=== PATIENT | female | born 1985 | race Caucasian/White ===

== ENCOUNTER → 2018-01-21 09:54 | Outpatient (CLI) | payer BC, SELFPAY ==
[2018-01-22 10:12] LABS: Hep A Ab, IgM Negative (Negative); Hepatitis B Core Antibody IgM Negative (Negative); Hepatitis B Surface Antigen Negative (Negative)
[2018-01-22 20:13] LABS: HIV Screen 4th Generation wRfx Non Reactive (Non Reactive); HSV 2 IgG, Type Spec <0.91 index (0.00-0.90)
[2018-01-22 20:14] LABS: Hepatitis C Antibody <0.1 s/co ratio (0.0-0.9); Rapid Plasma Reagin Ab Titer Non Reactive (NonRea<1:1)
== END ==
PROVIDERS: PCP Nurse Practitioner Obstetrics & Gynecology; Visit Provider Nurse Practitioner Obstetrics & Gynecology
DX: Z01.419 Encounter for gynecological examination (general) (routine) without abnormal findings (principal); Z72.51 High risk heterosexual behavior; Z72.53 High risk bisexual behavior
CPT/HCPCS: 36415; 80074; 86592; 86703; 86790; G0432

== ENCOUNTER → 2020-04-10 15:27 | Outpatient (CLI) | payer BC, SELFPAY ==
[2020-04-10 16:12] LABS: Basophils # 0.1 K/mm3 (0-0.2); Basophils % 0.9 % (0.1-2.0); Eosinophils # 0.2 K/mm3 (0.0-0.4); Eosinophils % 2.1 % (0.1-12.0); Hematocrit 39.4 % (37.0-47.0); Hemoglobin 13.8 g/dL (12.2-16.2); Lymphocytes # 2.7 K/mm3 (0.7-4.5); Lymphocytes % 37.9 % (10-50); Mean Corpuscular Hemoglobin 31.4 pg (27.0-31.2); Mean Corpuscular Volume 89.6 fl (81-99); Mean Platelet Volume 7.3 fl (7.4-10.4); Monocytes # 0.4 K/mm3 (0.1-1.0); Monocytes % 5.8 % (1.7-9.3); Neutrophils # 3.9 K/mm3 (1.8-7.8); Neutrophils % 53.3 % (37.0-80.0); Platelet Count 284 K/mm3 (142-424); Red Blood Count 4.39 M/mm3 (4.20-5.40); Red Cell Distribution Width 12.7 % (11.5-17.5); White Blood Count 7.2 K/mm3 (4.8-10.8)
[2020-04-10 18:05] LABS: Blood Urea Nitrogen 15 mg/dl (7-17); Calcium 9.3 mg/dl (8.4-10.2); Carbon Dioxide 29 mmol/L (22.0-30.0); Chloride 104 mmol/L (98-107); Estimated Glomerular Filt Rate 97 ml/min (>60); GFR (African American) 117 ML/MIN (>60); Glucose 81 mg/dl (74-100); Sodium 141 mmol/L (136-145)
[2020-04-10 18:16] LABS: Coronavirus 19 IgG Antibody Negative (Negative); Coronavirus 19 IgM Antibody Negative (Negative)
[2020-04-10 18:17] LABS: HCG Qualitative, Serum Negative (Negative)
== END ==
PROVIDERS: Visit Provider Nurse Practitioner Obstetrics & Gynecology
DX: Z30.09 Encounter for other general counseling and advice on contraception (principal); Z01.818 Encounter for other preprocedural examination
CPT/HCPCS: 36415; 80048; 84703; 85025; 86328

== ENCOUNTER 2020-04-12 06:01 | Day surgery (SDC) | payer BC, SELFPAY ==
[2020-04-10 10:08] VITALS: BMI 24.3
[2020-04-12] VITALS (10 sets, daily range): BP systolic 104–129; BP diastolic 64–80; PULSE 61–78; RESP 13–18; TEMP 36.2–36.6; O2SAT 95–100
--- NOTE | 2020-04-12 07:02 | P.PN_ITS ---
[facility] Anesthesia Checklist - Patient Identification Patient Identification: Arm Band, Verbal (Name & ) - Structural Data Admitted From: Home Planned Operative Procedure/s: Laparoscopic bilateral salpingectomy Consent for Planned Operative Procedure(s) Verified: Yes Verified Documents: Surgical Consent, History and Physical - NPO Status Verified Time NPO: 00:00 - Chart Verification Results Verified: CBC, BMP, HCG - Additional verifications Patient : No Anesthesia Reactions: No Hx Blood Transfusions: No Blood Transfusion Reaction: No - Airway Assessment C-Spine Mobility Assessed: Yes TMJ Mobility Assessed: Yes Dentition: Good Dentition - Neurological Assessment Level of Consciousness: Awake, Alert, Appropriate, Follows Commands Hx Seizures: No Numbness or tingling in extremities: No - Anesthesia Plan Anesthesia Risk discussed: Yes Anesthesia Plan: Verified ASA Class: II Anesthesia Type: General [facility] History I have reviewed the patient's past medical history: Yes Medical History: Reports:: Depression Denies:: Anxiety, Asthma, Cancer, Diabetes Mellitus Type 1, Diabetes Mellitus Type 2, Hypertension, Internal Pacemaker, MRSA, Seizures *Have you ever received a pneumonia vaccine?: No *Have you received a flu vaccine this season?: Yes Other Medical History: Denies: Blood Transfusion Reaction Anesthesia experience/problems:: No prior complications Other Surgeries: Yes: Cholecystectomy. No: Pacemaker Amputation: No Fractures: No - *Social History Last grade of school completed: High school graduate Smoking Status: Never smoker Alcohol Intake: never Substance Use Type: denies use *Occupational Status:: employed Housing: house Household Members: children *Travel in the last 8 weeks: None - Psychiatric History Pschychiatric History:: Reports:: Depression Denies:: Anxiety Family Hx:: Cancer, Diabetes, Asthma
--- NOTE | 2020-04-12 08:07 | P.OP_ITS ---
Date of procedure: 04/12/20 Pre-op Diagnosis:: Desire for sterilization Post-op Diagnosis:: Desire for sterilization Procedure performed:: Laparoscopic bilateral salpingectomy Surgeon:: Tunde Laguerre MD [employer] LAUNDRY WORKER:: Ajay Rahman Anesthesia: CARMELAA Estimated blood loss (mL): 25 Clinical Note:: She is a 34-year-old lady who expressed desire for sterilization. The risks and benefits as well as the irreversibility of bilateral salpingectomy were discussed with the patient prior to surgery. Operative findings:: She had a normal-appearing anteverted uterus. The tubes and ovaries appeared normal. The appendix was visualized and appeared normal. The upper abdomen was visualized and appeared normal. The deep pelvis was normal. Operative note:: She was taken to the operating room where general anesthesia was found be adequate. She was prepped and draped in normal sterile fashion in the semilithotomy position. A weighted speculum was placed in the vagina and the anterior lip of the cervix was grasped with a tenaculum. I then inserted a Radha uterine manipulator into the cervical os. The balloon was then insufflated. I changed gloves and injected 10 cc of 0.5% ropivacaine around her umbilicus and made a small incision within the umbilicus. I inserted a Veress needle into the abdominal cavity. The peritoneal cavity was then insufflated with carbon dioxide gas to a pressure of 20 mmHg. I then inserted a 5 millimeter trocar under direct vision. I injected through and through the pubic hairline, made a small incision here and inserted an 8 mm trocar under direct vision. I identified the inferior epigastric artery on the left side, went lateral to these and injected through and through. I then placed a 5 mm trocar here under direct vision. The pelvis and upper abdomen were then inspected and the findings were as previously dictated. I grasped the right tube at the cornua and using harmonic scalpel on coagulation mode I cut through the tube. I then grasped the distal tube and using harmonic scalpel cut along the mesosalpinx. The tube was removed through 8 mm trocar sit e. This was similarly performed on the patient's left side. I then injected 30 cc of 0.5% ropivacaine into the pelvis. After assuring hemostasis the gas was let out of the abdomen and hemostasis was once again assured. The abdomen was then reinsufflated. The secondary trochars were removed under direct vision. The gas was let out her abdomen. The primary trocar was then removed. The 8 mm trocar site was closed deeply with 2-0 Vicryl suture followed by subcuticular 4-0 Monocryl suture. The 5 mm trocar sites were closed with subcuticular 4-0 Monocryl. Sterile dressings were applied. The patient tolerated the procedure well and was taken to the recovery room in excellent condition. All sponge instrument and needle counts were correct. The estimated blood loss was less than 25 cc. Condition: stable Disposition: PACU Specimens:: Bilateral fallopian tubes Complications:: None
--- NOTE | 2020-04-12 08:15 | P.PN_ITS ---
[facility] Anesthesia Record Part I Intake, IV Amount: 900 Estimated blood loss (mL): 25 Urine output (mL): 900 Blood Products used (#): none Blood Pressure: 122/80 SaO2: 97 Pulse Rate: 70 Respiratory Rate: 13 Temperature: 97.1 F Patient is:: Awake, Drowsy, Stable Stable to PACU at:: 08:11
--- NOTE | 2020-04-12 13:36 | P.PN_ITS ---
[facility] Anesthesia Record Part II Discharge Time: 08:45 Destination: Surgical Day Care (OP Surgery) PACU nurse assessment reviewed?: Yes Patient Condition:: Good Anesthesia Complications:: None Swallowing reflex intact?: Yes Cyanosis?: No Blood Pressure: 108/72 Pulse Rate: 67 Temperature: 97.8 F Mental Status: Alert & Oriented Pain level:: 0 Nausea and/or vomitting:: None Intake, IV Amount: 0
== END 2020-04-12 09:12 | disposition home or self-care (01) ==
LOC: OR 06:04
PROVIDERS: PCP Nurse Practitioner Obstetrics & Gynecology; Visit Provider Nurse Practitioner Obstetrics & Gynecology
PROC: (CPT 58661; principal; 2020-04-12 07:30)
DX: Z30.2 Encounter for sterilization (principal); F32.9 Major depressive disorder, single episode, unspecified; Z90.49 Acquired absence of other specified parts of digestive tract; Z80.9 Family history of malignant neoplasm, unspecified; Z83.3 Family history of diabetes mellitus; Z82.5 Family history of asthma and other chronic lower respiratory diseases
CPT/HCPCS: 58661; 96374; J2405

== ENCOUNTER → 2021-01-06 14:53 | Outpatient (CLI) | payer BC, SELFPAY ==
--- NOTE | 2021-01-06 14:57 | US_ITS ---
PROCEDURE: US TRANSVAGINAL CLINICAL INDICATION: heavy periods COMPARISON: US TVP US TRANSVAGINAL PREG from 02/15/2017 FINDINGS: UTERUS: 9cm x 6cmx 4cm with a combined endometrial thickness of 7.6mm LEFT OVARY: [id number] with a volume of 4.1ml. RIGHT OVARY: [id number] with a volume of 18.9ml. There is a small amount of endometrial fluid. 2.7 cm right ovarian cyst is noted which appears to be a simple cyst. No cul-de-sac fluid. IMPRESSION: 1. Small amount of fluid within the endometrium. No endometrial thickening. 2. 2.7 cm simple appearing right ovarian cyst Dictated by: Dustin German MD 01/07/2021 09:55 Dustin German MD in OV 01/07/2021 09:55
== END ==
PROVIDERS: PCP Nurse Practitioner Obstetrics & Gynecology; Visit Provider Nurse Practitioner Obstetrics & Gynecology
DX: N92.0 Excessive and frequent menstruation with regular cycle (principal)
CPT/HCPCS: 76830

== ENCOUNTER → 2021-01-22 15:31 | Outpatient (CLI) | payer BC, SELFPAY ==
[2021-01-22 16:06] LABS: Basophils # 0.1 K/mm3 (0-0.2); Basophils % 0.7 % (0.1-2.0); Eosinophils # 0.2 K/mm3 (0.0-0.4); Eosinophils % 2.1 % (0.1-12.0); Hematocrit 41.6 % (37.0-47.0); Hemoglobin 13.8 g/dL (12.2-16.2); Lymphocytes # 2.6 K/mm3 (0.7-4.5); Lymphocytes % 35.7 % (10-50); Mean Corpuscular HGB Conc 33.2 g/dL (31.8-35.4); Mean Corpuscular Hemoglobin 30.3 pg (27.0-31.2); Mean Corpuscular Volume 91.1 fl (81-99); Mean Platelet Volume 6.6 fl (7.4-10.4); Monocytes # 0.5 K/mm3 (0.1-1.0); Monocytes % 6.9 % (1.7-9.3); Neutrophils % 54.6 % (37.0-80.0); Platelet Count 345 K/mm3 (142-424); Red Blood Count 4.56 M/mm3 (4.20-5.40); Red Cell Distribution Width 12.8 % (11.5-17.5); White Blood Count 7.4 K/mm3 (4.8-10.8)
[2021-01-22 16:25] LABS: HCG Qualitative, Serum Negative (Negative)
[2021-01-22 16:28] LABS: Blood Urea Nitrogen 11 mg/dl (7-17); Calcium 9.5 mg/dl (8.4-10.2); Carbon Dioxide 30 mmol/L (22.0-30.0); Chloride 102 mmol/L (98-107); Estimated Glomerular Filt Rate 115 ml/min (>60); GFR (African American) 139 ML/MIN (>60); Glucose 98 mg/dl (74-100); Sodium 141 mmol/L (136-145)
[2021-01-22 16:54] LABS: Coronavirus 19 IgG Antibody Negative (Negative); Coronavirus 19 IgM Antibody Negative (Negative)
== END ==
PROVIDERS: Visit Provider Nurse Practitioner Obstetrics & Gynecology
DX: Z01.818 Encounter for other preprocedural examination (principal); Z20.822 Contact with and (suspected) exposure to COVID-19; N93.9 Abnormal uterine and vaginal bleeding, unspecified; N92.1 Excessive and frequent menstruation with irregular cycle
CPT/HCPCS: 36415; 80048; 84703; 85025; 86328

== ENCOUNTER 2021-01-24 06:05 | Day surgery (SDC) | payer BC, SELFPAY ==
[2021-01-22 09:31] VITALS: BMI 24.6
[2021-01-24] VITALS (10 sets, daily range): BP systolic 106–125; BP diastolic 69–81; PULSE 80–93; RESP 12–18; TEMP 36.4–37.4; O2SAT 96–100
--- NOTE | 2021-01-24 08:05 | HMH.OPNOTE ---
Date of procedure: 01/24/21 Pre-op Diagnosis:: Menorrhagia Post-op Diagnosis:: Menorrhagia Procedure performed:: Hysteroscopy, dilation and curettage, NovaSure ablation Surgeon:: Tunde Laguerre MD HIGH SCHOOL FOOTBALL COACH:: Other (Jefe Spencer) Anesthesia: LMA Estimated blood loss (mL): 100 Clinical Note:: She is a 35-year-old lady who complains of extremely heavy periods. She has tried the control pill as well as IUD in the past. Despite this she continued to have heavy periods. After having discussed the risk and benefits she elected to have a NovaSure ablation. She has had a prior tubal ligation. Operative findings:: She had an anteverted bulky uterus that sounded to 9 cm. The endometrium appeared somewhat lush. It appeared that there may have been some endometritis since the endometrium was erythematous near the fundus. Operative note:: She was taken to the operating room where LMA anesthesia was found be adequate. She was prepped and draped in the normal sterile fashion in the lithotomy position. A weighted speculum was placed in the vagina and the anterior lip of the cervix was grasped with a tenaculum. The cervix was then dilated to approximately 6 mm. I then inserted a hysteroscope into the uterine cavity and the findings were as previously dictated. I then performed a gentle curettage with a medium curette. I then sounded the uterus and determine the length of the uterus. The length of the uterus was 9 cm. The length of the endometrial cavity was 6 cm and the width was 4.4 cm. This was placed into the NovaSure device. I then inserted the NovaSure device and determine the width of the endometrial cavity. I then ran the device through its program. I further inspected the endometrial cavity and was found to be completely charred. I then injected 30 cc of 0.5% ropivacaine at the 3:00, 5:00, 7:00, and 9:00 positions of the cervix. She tolerated procedure well and was taken to the recovery room in excellent condition. All sponge and instrument counts were correct. The estimated blood loss was less than 100 cc. Condition: stable Disposition: PACU Specimens:: Endometrial curettings Complications:: None
--- NOTE | 2021-01-24 12:01 | P.PN_ITS ---
[facility] Anesthesia Checklist - Patient Identification Patient Identification: Arm Band - Structural Data Admitted From: Home Planned Operative Procedure/s: Hysterscopy D & C/ Novasure ablation Consent for Planned Operative Procedure(s) Verified: Yes Verified Documents: Surgical Consent, History and Physical - NPO Status Verified Time NPO: 00:00 - Additional verifications Anesthesia Reactions: No Hx Blood Transfusions: No Blood Transfusion Reaction: No - Airway Assessment C-Spine Mobility Assessed: Yes TMJ Mobility Assessed: Yes Dentition: Good Dentition - Neurological Assessment Level of Consciousness: Awake, Alert - Anesthesia Plan Anesthesia Risk discussed: Yes Anesthesia Plan: Verified Anesthesia Type: General [facility] History Medical History: Reports:: Depression, Gall Bladder Disease Denies:: Anxiety, Asthma, Cancer, Diabetes Mellitus Type 1, Diabetes Mellitus Type 2, Hypertension, Internal Pacemaker, MRSA, Seizures *Have you ever received a pneumonia vaccine?: No *Have you received a flu vaccine this season?: No Other Medical History: Denies: Blood Transfusion Reaction Anesthesia experience/problems:: None Other Surgeries: Yes: Cholecystectomy. No: Pacemaker Amputation: No Fractures: No - *Social History Smoking Status: Never smoker Alcohol Intake: never Substance Use Type: denies use *Occupational Status:: employed Housing: house Household Members: children *Travel in the last 8 weeks: None - Psychiatric History Pschychiatric History:: Reports:: Depression Denies:: Anxiety Family Hx:: Cancer, Diabetes, Asthma
--- NOTE | 2021-01-24 12:04 | P.PN_ITS ---
[facility] Anesthesia Record Part I Intake, IV Amount: 800 Estimated blood loss (mL): 25 Urine output (mL): 0 Blood Pressure: 120/81 SaO2: 96 Pulse Rate: 89 Respiratory Rate: 12 Temperature: 97.9 F Patient is:: Awake, Drowsy Stable to PACU at:: 08:10
--- NOTE | 2021-01-27 08:19 | P.PN_ITS ---
[facility] Anesthesia Record Part II Discharge Time: 08:30 Destination: Surgical Day Care (OP Surgery) PACU nurse assessment reviewed?: Yes Patient Condition:: Good Anesthesia Complications:: None Swallowing reflex intact?: Yes Cyanosis?: No Blood Pressure: 121/74 Pulse Rate: 82 Temperature: 99.4 F Mental Status: Alert & Oriented Pain level:: 0 Nausea and/or vomitting:: None Intake, IV Amount: 0
[2021-01-27 08:20] VITALS: BP 121/74; PULSE 82; TEMP 37.4
== END 2021-01-24 09:44 | disposition home or self-care (01) ==
PROVIDERS: PCP Nurse Practitioner Obstetrics & Gynecology; Visit Provider Nurse Practitioner Obstetrics & Gynecology
PROC: 0U5B8ZZ Destruction of Endometrium, Via Natural or Artificial Opening Endoscopic (ICD-10-PCS; CPT 58563; principal; 2021-01-24 07:30)
DX: N92.1 Excessive and frequent menstruation with irregular cycle; Z80.9 Family history of malignant neoplasm, unspecified; Z83.3 Family history of diabetes mellitus; Z82.5 Family history of asthma and other chronic lower respiratory diseases; F32.9 Major depressive disorder, single episode, unspecified; K82.9 Disease of gallbladder, unspecified
CPT/HCPCS: 58563; 96374; J2405

== ENCOUNTER 2021-04-16 16:46 | Emergency (ER) | payer BC, SELFPAY ==
[2021-04-16 16:58] VITALS: BP 104/85; PULSE 117; RESP 18; TEMP 37.3; O2SAT 99; BMI 24.7
[2021-04-16 17:07] VITALS: BP 112/78; PULSE 114; RESP 20; TEMP 37.8; O2SAT 95; BMI 24.9
--- NOTE | 2021-04-16 17:10 | HMH.EDUTC ---
[facility] [place] Impression: Viral syndrome Pharyngitis Qualifiers: Pharyngitis/tonsillitis etiology: unspecified etiology Qualified Code(s): J02.9 - Acute pharyngitis, unspecified Disposition: Home, Self-Care Condition on Discharge: Good Instructions: DI for Pharyngitis/Tonsillopharyngitis -- Adult, DI for Viral Syndrome, Preventing the Spread of Coronavirus Discharge Instructions Additional Instructions: Drink plenty of fluids. Take tylenol or ibuprofen for pain or fever. Take the medications as directed. Follow up with your regular doctor. GO TO THE ER FOR ANY WORSENING SYMPTOMS Prescriptions: predniSONE [Deltasone 10mg tablet] 10 mg PO BID 3 Days #6 tab Transmission Status: Received by [facility] Benzonatate [Tessalon Perle 100mg Cap] 100 mg PO TIDP PRN #30 cap PRN Reason: Cough Transmission Status: Received by [facility] Azithromycin [Z-Bandar 250mg Tab*] 250 mg PO UD DOSE PK #6 tab Transmission Status: [facility] Referrals: Leny Zavala PA [Primary Care Provider] - Forms: Work/School Release Time of Disposition: 17:22 Medical Decision Making - Medical Records Medical records reviewed: No: I reviewed the patient's medical records. - Diego Inquiry Pt receiving controlled substance: No Vital Signs: 04/16/21 16:58 04/16/21 17:07 04/16/21 17:20 Temperature 99.1 F 100.1 F H 100 F H Temperature Source Oral Oral Pulse Rate 109 H Pulse Rate [Left Radial] 117 H 114 H Respiratory Rate 18 20 18 Blood Pressure 110/73 Blood Pressure [Left Arm] 104/85 L 112/78 Blood Pressure Mean [Left Arm] 91 89 Blood Pressure Source [Left Arm] Automatic Cuff Blood Pressure Position [Left Arm] Sitting 02 Sat by Pulse Oximetry 99 95 Oxygen Delivery Method Room Air - Lab Data Lab results reviewed: Yes: I reviewed the patient's lab results. Lab Results 04/16/21 17:13: Strep Scn Rapid Clinic Negative Orders (Tests/Meds): ORDERS Category Date Time Status Strep Screen Confirmation Stat Micro 04/16/21 17:13 [place] [facility] [place] - General Stated complaint: NOONAN,Nausa,weakness,fever Time Seen by Provider: 04/16/21 17:10 Mode of Arrival: Ambulatory Source of Information: Patient Limitations: No Limitations Description of Symptoms (Recalled from Triage Doc. by RN): Pt reports began having headache on Wednesday of this week, reports on wednesday continued with headache. Reports no energy, weak, lethargic feeling, states has had fevers, runny nose. - History of Present Illness Provider Complaint: She states that for the past 2 days she has had fever up to 101, cough, sinus congestion, body aches and n/d. She denies any vomiting. She has not been vaccinated against covid-19. - Related Data Previous Rx's Medication Instructions Recorded Azithromycin [Z-Bandar 250mg Tab*] 250 mg PO UD DOSE PK #6 tab 04/16/21 Benzonatate [Tessalon Perle 100mg 100 mg PO TIDP PRN #30 cap 04/16/21 Cap] predniSONE [Deltasone 10mg tablet] 10 mg PO BID 3 Days #6 tab 04/16/21 Allergies Allergy/AdvReac Type Severity Reaction Status Date / Time No Known Allergies Allergy Verified 02/11/21 15:31 [facility] History - Hepatitis A Screen Attestation statement:: This patient has been screened for Hepatitis A risk factors. I have reviewed the patient's past medical history: Yes Medical History: Reports:: Depression, Gall Bladder Disease Denies:: Anxiety, Asthma, Cancer, Diabetes Mellitus Type 1, Diabetes Mellitus Type 2, Hypertension, Internal Pacemaker, MRSA, Seizures Other Medical History: Denies: Blood Transfusion Reaction Other Surgeries: Yes: Cholecystectomy, Dilation and Curettage. No: Pacemaker Amputation: No Fractures: No Comment: D&C hysteroscopy Novasure Ablation 12/2020 - Social History Smoking Status: Never smoker Alcohol Intake: never Substance Use Type: denies use Occupational Status: employed Housing: house Household Member
[2021-04-16 17:20] VITALS: BP 110/73; PULSE 109; RESP 18; TEMP 37.7
[2021-04-16 17:20] LABS: UTC Strep Screen (Rapid) Negative (Negative)
--- NOTE | 2021-04-17 10:01 | PC.NURSE ---
relayed positive covid results.
== END 2021-04-16 17:30 | disposition home or self-care (01) ==
PROVIDERS: Emergency Provider Nurse Practitioner Family; PCP Physician Assistant
DX: U07.1 COVID-19 (principal); B34.9 Viral infection, unspecified; F33.1 Major depressive disorder, recurrent, moderate
CPT/HCPCS: 87880; 99203; G0463; U0003

== ENCOUNTER 2021-04-22 13:00 | Emergency (ER) | payer BC, SELFPAY ==
[2021-04-22 13:00] VITALS: BP 118/73; PULSE 89; RESP 20; TEMP 36.9; O2SAT 96; BMI 23.4
--- NOTE | 2021-04-22 13:51 | HMH.EDUTC ---
[facility] [place] Clinical Impression: Serous otitis media Qualifiers: Chronicity: acute Laterality: bilateral Recurrence: non-recurrent Qualified Code(s): H65.03 - Acute serous otitis media, bilateral Disposition: Home, Self-Care Condition on Discharge: Good Instructions: Middle Ear Infection, Preventing the Spread of Coronavirus Discharge Instructions Additional Instructions: Drink plenty of fluids. Take tylenol for pain or fever. Return if youDrink plenty of fluids. Take tylenol for pain or fever. Return if you begin to have difficulty breathing. Prescriptions: methylPREDNISolone [Medrol] 4 mg PO DIRECTED 6 Days #21 tab.ds.pk Transmission Status: Received by [facility] Referrals: Leny Zavala PA [Primary Care Provider] - Time of Disposition: 13:53 Medical Decision Making - Medical Records Medical records reviewed: No: I reviewed the patient's medical records. - Diego Inquiry Pt receiving controlled substance: No Vital Signs: 04/22/21 13:00 04/22/21 14:15 Temperature 98.5 F 98.5 F Temperature Source Oral Pulse Rate 89 Pulse Rate [Left Radial] 89 Respiratory Rate 20 20 Blood Pressure 118/73 Blood Pressure [Right Arm] 118/73 Blood Pressure Mean [Right Arm] 88 Blood Pressure Source [Right Arm] Automatic Cuff Blood Pressure Position [Right Arm] Sitting 02 Sat by Pulse Oximetry 96 Oxygen Delivery Method Room Air [facility] [place] - General Stated complaint: both ear ache Time Seen by Provider: 04/22/21 13:51 Mode of Arrival: Ambulatory Source of Information: Patient Limitations: No Limitations Description of Symptoms (Recalled from Triage Doc. by RN): c/o ears hurting HEENT Symptoms (Recalled from RN notes): Yes Resp Symptoms (Recalled from RN notes): No Skin Symptoms (Recalled from RN notes): No MS Symptoms (Recalled from RN notes): No Functional Status (Recalled from RN notes): wnl - History of Present Illness Provider Complaint: She is having bilateral ear pain. She was diagnosed with covid last week. She states that she is doing much better, but she has began to have ear pain and pressure. - Related Data Previous Rx's Medication Instructions Recorded Azithromycin [Z-Bandar 250mg Tab*] 250 mg PO UD DOSE PK #6 tab 04/16/21 Benzonatate [Tessalon Perle 100mg 100 mg PO TIDP PRN #30 cap 04/16/21 Cap] predniSONE [Deltasone 10mg tablet] 10 mg PO BID 3 Days #6 tab 04/16/21 methylPREDNISolone [Medrol] 4 mg PO DIRECTED 6 Days #21 04/22/21 tab.ds.pk Allergies Allergy/AdvReac Type Severity Reaction Status Date / Time No Known Allergies Allergy Verified 02/11/21 15:31 - Worker's Comp Is this a Worker's Comp case?: No H History - Hepatitis A Screen Drug use history?: No High risk sexual behaviors?: No History of sexually transmitted infection?: No Currently employed?: No Childcare worker?: No Do you have indoor plumbing?: Yes Do you have electricity?: Yes Attestation statement:: This patient has been screened for Hepatitis A risk factors. I have reviewed the patient's past medical history: Yes Medical History: Reports:: Depression, Gall Bladder Disease Denies:: Anxiety, Asthma, Cancer, Diabetes Mellitus Type 1, Diabetes Mellitus Type 2, Hypertension, Internal Pacemaker, MRSA, Seizures Other Medical History: Denies: Blood Transfusion Reaction Other Surgeries: Yes: Cholecystectomy, Dilation and Curettage. No: Pacemaker Amputation: No Fractures: No Comment: D&C hysteroscopy Novasure Ablation 12/2020 - Social History Smoking Status: Never smoker Alcohol Intake: never Substance Use Type: denies use Occupational Status: employed Housing: house Household Members: children - Psychiatric History Pschychiatric History:: Reports:: Depression Denies:: Anxiety Family Hx:: Cancer, Diabetes, Asthma ROS Obtained: Yes All systems reviewed & no additional complaints - Constitutional Constitutional: Reports system reviewed and no additional
[2021-04-22 14:15] VITALS: BP 118/73; PULSE 89; RESP 20; TEMP 36.9; O2SAT 96
== END 2021-04-22 14:24 | disposition home or self-care (01) ==
PROVIDERS: Emergency Provider Nurse Practitioner Family; PCP Physician Assistant
DX: H65.03 Acute serous otitis media, bilateral (principal); U07.1 COVID-19; F33.1 Major depressive disorder, recurrent, moderate
CPT/HCPCS: 99202; G0463

== ENCOUNTER → 2021-07-22 16:32 | Outpatient (CLI) | payer BC, SELFPAY ==
[2021-07-24 22:40] LABS: Neisseria gonorrhoeae, NAA Negative (Negative)
== END ==
PROVIDERS: Visit Provider Nurse Practitioner Obstetrics & Gynecology
DX: Z72.51 High risk heterosexual behavior (principal)
CPT/HCPCS: 87491; 87591

== ENCOUNTER → 2021-12-03 08:28 | Outpatient (CLI) | payer BC, SELFPAY ==
[2021-12-03 08:56] LABS: Basophils # 0.1 K/mm3 (0-0.2); Basophils % 1.3 % (0.1-2.0); Eosinophils # 0.1 K/mm3 (0.0-0.4); Eosinophils % 2.1 % (0.1-12.0); Hematocrit 45.2 % (37.0-47.0); Lymphocytes # 2.2 K/mm3 (0.7-4.5); Lymphocytes % 35.7 % (10-50); Mean Corpuscular HGB Conc 33.1 g/dL (31.8-35.4); Mean Corpuscular Hemoglobin 31.3 pg (27.0-31.2); Mean Corpuscular Volume 94.6 fl (81-99); Mean Platelet Volume 7.5 fl (7.4-10.4); Monocytes # 0.5 K/mm3 (0.1-1.0); Monocytes % 8.4 % (1.7-9.3); Neutrophils # 3.2 K/mm3 (1.8-7.8); Neutrophils % 52.5 % (37.0-80.0); Platelet Count 336 K/mm3 (142-424); Red Blood Count 4.77 M/mm3 (4.20-5.40); Red Cell Distribution Width 12.8 % (11.5-17.5); White Blood Count 6.1 K/mm3 (4.8-10.8)
[2021-12-03 10:23] LABS: Chloride 100 mmol/L (98-107); Sodium 136 mmol/L (136-145)
[2021-12-03 10:24] LABS: Potassium 4.3 mmoL/L (3.5-5.1)
[2021-12-03 10:27] LABS: Anion Gap 13.3 mEq/L (5-15); Blood Urea Nitrogen 11 mg/dl (7-17); Calcium 8.7 mg/dl (8.4-10.2); Carbon Dioxide 27 mmol/L (22.0-30.0); Estimated Glomerular Filt Rate 96 ml/min (>60); GFR (African American) 116 ML/MIN (>60); Glucose 91 mg/dl (74-100)
[2021-12-03 10:47] LABS: HCG Qualitative, Serum Negative (Negative)
== END ==
PROVIDERS: Visit Provider Nurse Practitioner Obstetrics & Gynecology
DX: Z01.818 Encounter for other preprocedural examination (principal); Z11.52 Encounter for screening for COVID-19
CPT/HCPCS: 36415; 80048; 84703; 85025; C9803; U0003; U0005

== ENCOUNTER 2021-12-05 06:49 | Observation (INO) | payer BC, SELFPAY ==
[2021-12-02 10:18] VITALS: BMI 23.7
[2021-12-05] VITALS (23 sets, daily range): BP systolic 98–120; BP diastolic 56–80; PULSE 62–90; RESP 14–20; TEMP 36.7–43; O2SAT 94–99
[2021-12-05 06:32] LABS: Coronavirus 19, PCR Not Detected (NotDetected); Influenza A, PCR Not Detected (NotDetected); Influenza B, PCR Not Detected (NotDetected)
--- NOTE | 2021-12-05 07:53 | P.PN_ITS ---
[facility] Anesthesia Checklist - Patient Identification Patient Identification: Arm Band - Structural Data Admitted From: Home [facility] Consent for Planned Operative Procedure(s) Verified: Yes Verified Documents: Surgical Consent, History and Physical - NPO Status Verified Time NPO: 00:00 - Additional verifications Anesthesia Reactions: No Hx Blood Transfusions: No Blood Transfusion Reaction: No - Airway Assessment C-Spine Mobility Assessed: Yes (mp2) TMJ Mobility Assessed: Yes Dentition: Good Dentition - Neurological Assessment Level of Consciousness: Awake, Alert - Anesthesia Plan Anesthesia Risk discussed: Yes Anesthesia Plan: Verified ASA Class: I Anesthesia Type: General [facility] History I have reviewed the patient's past medical history: Yes Medical History: Reports:: Depression, Gall Bladder Disease Denies:: Anxiety, Asthma, Cancer, Diabetes Mellitus Type 1, Diabetes Mellitus Type 2, Hypertension, Internal Pacemaker, MRSA, Seizures *Have you ever received a pneumonia vaccine?: No *Have you received a flu vaccine this season?: No Other Medical History: Denies: Blood Transfusion Reaction Anesthesia experience/problems:: nac Other Surgeries: Yes: Cholecystectomy, Dilation and Curettage, Tubal Ligation. No: Pacemaker Amputation: No Fractures: No - *Social History Smoking Status: Never smoker Alcohol Intake: never Substance Use Type: denies use *Occupational Status:: employed Housing: house Household Members: children *Travel in the last 8 weeks: None - Psychiatric History Pschychiatric History:: Reports:: Depression Denies:: Anxiety Family Hx:: Cancer, Diabetes, Asthma
--- NOTE | 2021-12-05 09:11 | HMH.HP ---
*Admission Date: 12/05/21 *Chief complaint: Pelvic pain, bleeding *History of present illness: She is a 36-year-old 3 para 3 lady who complains of lower abdominal pain as well as heavy periods. She has had a bilateral salpingectomy as well as an endometrial ablation. Despite this she continued to have pelvic pain as well as bleeding. After having discussed the risks and benefits she elected to have a laparoscopically assisted vaginal hysterectomy. [facility] History I have reviewed the patient's past medical history: Yes Medical History: Reports:: Depression, Gall Bladder Disease Denies:: Anxiety, Asthma, Cancer, Diabetes Mellitus Type 1, Diabetes Mellitus Type 2, Hypertension, Internal Pacemaker, MRSA, Seizures *Have you ever received a pneumonia vaccine?: No *Have you received a flu vaccine this season?: No Other Medical History: Denies: Blood Transfusion Reaction Anesthesia experience/problems:: nac Other Surgeries: Yes: Cholecystectomy, Dilation and Curettage, Tubal Ligation. No: Pacemaker Amputation: No Fractures: No - *Social History Smoking Status: Never smoker Alcohol Intake: never Substance Use Type: denies use *Occupational Status:: employed Housing: house Household Members: children *Travel in the last 8 weeks: None - Psychiatric History Pschychiatric History:: Reports:: Depression Denies:: Anxiety Family Hx:: Cancer, Diabetes, Asthma Review of Systems - Review of Systems Review of systems:: pertinent systems reviewed and negative unless documented below Meds Home Medications Medication Instructions Recorded Confirmed Type No Known Home Medications 07/22/21 12/05/21 History Allergies Allergy/AdvReac Type Severity Reaction Status Date / Time No Known Allergies Allergy Verified 12/05/21 06:22 Exam Vital signs and Labs for Last 24 Hours: Temp Pulse Resp BP Pulse Ox 98.4 F 77 18 99/68 L 99 12/05/21 06:23 12/05/21 06:23 12/05/21 06:23 12/05/21 06:23 12/05/21 06:23 Laboratory Results - last 24 hr 12/05/21 06:27: SARS-CoV-2 (PCR) Not detected, Influenza A Untype (PCR) Not detected, Influenza Type B (PCR) Not detected I & O for Last 24 hours: Intake & Output 12/02/21 12/03/21 12/04/21 12/05/21 11:59 11:59 11:59 11:59 Weight 156 lb - Constitutional no acute distress - *Routine HEENT Exam Head: Present: normocephalic Eye: Present: EOMI, PERRL ENT: Present: mucous membranes moist - *Routine Neck Exam Present: supple, full ROM - *Routine Respiratory Exam Absent: accessory muscle use (good air entry bilaterally), wheezes, crackles - *Routine Cardiovascular Exam Present: RRR. Absent: murmur - *Routine Abdominal Exam Present: soft, normoactive bowel sounds. Absent: tenderness, rebound, guarding, mass - *Routine Rectal Exam Rectal:: deferred - *Routine Genitalia Exam Genitalia:: deferred - *Routine Extremities Exam Present: full ROM. Absent: cyanosis, edema, calf tenderness - *Routine Skin Exam Present: intact (good color) - *Routine Neurological Exam Present: alert, oriented X3 - Routine Psychiatric Exam Present: normal affect - Detailed Rectal Exam Patient deferred: visual exam, digital exam - Detailed Exam Patient deferred: external exam, groin exam, perineal exam Assessment and Plan (1) Menorrhagia Status: Acute Category: Medical Code(s): N92.0 - Excessive and frequent menstruation with regular cycle (2) Dysmenorrhea Status: Acute Category: Medical Code(s): N94.6 - Dysmenorrhea, unspecified (3) Pelvic pain Status: Acute Category: Medical Code(s): R10.2 - Pelvic and perineal pain (4) Endometriosis Status: Acute Category: Medical Code(s): N80.9 - Endometriosis, unspecified - Assessment and plan all Dx Assessment and Plan for all problems:: She is here for a laparoscopic-assisted vaginal hysterectomy.
--- NOTE | 2021-12-05 09:14 | HMH.OPNOTE ---
Date of procedure: 12/05/21 Pre-op Diagnosis:: Pelvic pain, menorrhagia possible adenomyosis Post-op Diagnosis:: Pelvic pain, menorrhagia, possible adenomyosis, endometriosis Procedure performed:: Laparoscopically assisted vaginal hysterectomy Surgeon:: Tunde Laguerre MD Information Technology Manager(s):: Osiris Gonzalez SCIENTIFIC INFORMATICS LEADER:: Bari Billings Anesthesia: GETA Estimated blood loss (mL): 150 Clinical Note:: She is a 36-year-old 3 para 3 lady who complains of lower abdominal pain. She complains of heavy periods as well as dysmenorrhea. She has had a previous laparoscopic bilateral salpingectomy as well as endometrial ablation. Despite this she continued to have pain and heavy periods. After having discussed the risks and benefits we elected perform a laparoscopically assisted vaginal hysterectomy. Operative findings:: She had an anteverted somewhat bulky uterus. The ovaries appeared normal. The tubes had previously been removed. There were multiple vesicles on the outside of the uterus as well as in the pelvis. This is possibly consistent with endometriosis. There were also small vesicles on the ovaries. The upper abdomen appeared normal. The rest the pelvis appeared completely normal. Operative note:: She was taken to the operating room where general anesthesia was found be adequate. She was prepped and draped in normal sterile fashion in the semilithotomy position. A weighted speculum was placed in the vagina and the anterior lip of the cervix was grasped with a tenaculum. An acorn uterine manipulator was then placed within the cervical os. I then changed gloves. I injected 10 cc of 0.5% ropivacaine around the umbilicus and made a small incision within the umbilicus. I inserted a Veress needle into the abdominal cavity. The abdominal cavity was then insufflated with carbon dioxide gas to a pressure of 20 mmHg. I then inserted an 11 mm trocar under direct vision. I injected through and through the pubic hairline, made a small incision here and inserted a 5 mm trocar under direct vision. I identified the inferior epigastric arteries on the left side, went lateral to these and injected through and through. I then made a small incision and inserted an 11 mm trocar under direct vision. A similar 11 mm trocar was placed on the right side. The left round ligament was then grasped and cut through with harmonic scalpel. This was followed by opening up the peritoneum anteriorly to the midline. This is followed by cutting through the left utero-ovarian ligament. I used Harmonic scalpel on the coagulation mode. I then took down the posterior aspect of the broad ligament to the level of the uterosacral ligament. I then skeletonized the uterine arteries on the left side and placed hemoclips on these. Using the harmonic scalpel on coagulation mode adjacent to the cervix I then took down these uterine arteries. I then further freed up the bladder anteriorly and laterally on the left side. I then turned my attention to the right side where I grasped the right round ligament. I then cut through the right round ligament. The right utero-ovarian ligament was then taken down with harmonic scalpel on coagulation mode. I then took down the anterior peritoneum to the midline joining up with the other side. I further dissected the bladder off. The posterior aspect of the right broad ligament was then taken down with harmonic scalpel. I skeletonized the uterine arteries on the right side. I applied hemoclips to the uterine arteries and staying adjacent to the cervix on the right side I took down the uterine arteries with harmonic scalpel on coagulation mode. I further freed up the bladder. We then assured hemostasis. After once again assuring hemostasis we then turned our attention to the vaginal portion of the surgery. The patient was placed in the lithotomy position and a weighted speculum was placed in the vagina. The anterior and posterior lip of t
--- NOTE | 2021-12-05 09:23 | P.PN_ITS ---
[facility] Anesthesia Record Part I Intake, IV Amount: 1,400 Estimated blood loss (mL): 150 Urine output (mL): 50 Blood Pressure: 109/63 SaO2: 94 Pulse Rate: 72 Respiratory Rate: 16 Temperature: 98.8 F Patient is:: Drowsy, Stable Stable to PACU at:: 09:10
--- NOTE | 2021-12-05 09:45 | SUR.PHASEI ---
0939- detailed report called to nelsy howell on OB floor at this time, 0941- pt transported to the OB floor in stable condition at this time by nelsy guillory
--- NOTE | 2021-12-05 09:50 | PC.NURSE ---
patient arrived to floor at this time. asleep, but aroused to name. lungs cta, and bowel sounds active x4. 4 lap incision noted. skinner in place. scant vaginal bleeding. scuds in place. iv infusing. bed locked in lowest position. no current needs.
--- NOTE | 2021-12-05 09:52 | P.PN_ITS ---
[facility] Anesthesia Record Part II Discharge Time: 09:40 Destination: Obstetric PACU nurse assessment reviewed?: Yes Patient Condition:: Good Anesthesia Complications:: None Swallowing reflex intact?: Yes Cyanosis?: No Blood Pressure: 102/57 Pulse Rate: 76 Temperature: 98.5 F Mental Status: Alert & Oriented Pain level:: 0 Nausea and/or vomitting:: None Intake, IV Amount: 0
--- NOTE | 2021-12-05 12:08 | PC.NURSE ---
DR. BAUM AT BEDSIDE AT THIS TIME.
[2021-12-05 14:30] LABS: Microscopic,Cath URINE MICROSCOPIC (MICROSCOPIC)
[2021-12-05 15:26] LABS: Appearance,Urine/Cath CLEAR (Clear); Bilirubin,Cath Negative (Negative); Blood, Urine/Cath 1+ (Negative); Color,Urine/Cath YELLOW (Yellow); Glucose,Urine/Cath (UA) Negative (Negative); Ketones,Urine/Cath TRACE (Negative); Leukocyte Esterase,Cath TRACE (Negative); Nitrate,Cath Negative (Negative); PH,Urine/Cath 5.5 (5.0-8.5); Protein,Urine/Cath 1+ (Negative); Specific Gravity, Urine/Cath >= 1.030 (1.005-1.030); Urobilinogen,Cath 0.2 EU/dl (0.2)
[2021-12-05 15:47] LABS: Bacteria,Urine/Cath 1+ /lpf
--- NOTE | 2021-12-05 15:54 | PC.NURSE ---
DR BAUM AT BEDSIDE.
--- NOTE | 2021-12-05 15:55 | PC.NURSE ---
REASSESSMENT COMPLETED AT THIS TIME. NO CHANGES. LUNGS CTA AND BOWEL SOUNDS ACTIVE X4. 4 LAP SITES. SCANT SEROSANG DRAINAGE ON DRESSINGS. ABD SOFT. SCANT VAG BLEEDING. PT REPORTS NO PAIN. IV INFUSING. LI IN PLACE. SCUDS IN PLACE. GOING TO GET UP WITHIN THE HOUR. PATIENT VOICES NO NEEDS.
--- NOTE | 2021-12-05 16:55 | PC.NURSE ---
PATIENT GOT UP AT THIS TIME WITH ASSISTANCE. WALKED WELL WITH ASSISTANCE. VOIDED ADEQUATE OUTPUT- BLOOD MIXED IN. MESH PANTIES AND PADS APPLIED. NEW GOWN APPLIED. PATIENT SAT IN CHAIR AND IS GOING TO EAT DINNER. NO OTHER CURRENT NEEDS.
[2021-12-06 04:00] VITALS: BP 113/69; PULSE 83; RESP 16; TEMP 36.8; O2SAT 95
--- NOTE | 2021-12-06 04:22 | PC.NURSE ---
Pt has slept well this shift. Pt A&Ox4, BLT lungs CTA, bowel sounds present in all 4 quadrants. IV patent and infusing well. Abdomen soft and slightly tender, pt has good urine output and is passing gas. x4 LAP sites to abdomen dressings C/D/I. pt medicated this shift per eMAR. pt denies headache, SOA, N/V. VSS
[2021-12-06 07:26] LABS: Basophils # 0.1 K/mm3 (0-0.2); Basophils % 1.3 % (0.1-2.0); Eosinophils # 0.1 K/mm3 (0.0-0.4); Eosinophils % 1.2 % (0.1-12.0); Hematocrit 38.2 % (37.0-47.0); Hemoglobin 12.4 g/dL (12.2-16.2); Lymphocytes # 2.9 K/mm3 (0.7-4.5); Lymphocytes % 26.7 % (10-50); Mean Corpuscular HGB Conc 32.6 g/dL (31.8-35.4); Mean Corpuscular Hemoglobin 31.8 pg (27.0-31.2); Mean Corpuscular Volume 97.8 fl (81-99); Mean Platelet Volume 7.6 fl (7.4-10.4); Monocytes # 0.7 K/mm3 (0.1-1.0); Monocytes % 6.7 % (1.7-9.3); Platelet Count 245 K/mm3 (142-424); Red Blood Count 3.91 M/mm3 (4.20-5.40); Red Cell Distribution Width 12.8 % (11.5-17.5); White Blood Count 10.9 K/mm3 (4.8-10.8)
[2021-12-06 08:00] VITALS: BP 109/69; PULSE 74; RESP 18; TEMP 36.8; O2SAT 100
[2021-12-06 08:15] LABS: Anion Gap 5.8 mEq/L (5-15); Blood Urea Nitrogen 9 mg/dl (7-17); Carbon Dioxide 26 mmol/L (22.0-30.0); Chloride 110 mmol/L (98-107); Creatinine Clearance Estimated 148 mL/min (50-200); Estimated Glomerular Filt Rate 114 ml/min (>60); GFR (African American) 138 ML/MIN (>60); Glucose 96 mg/dl (74-100); Potassium 3.8 mmoL/L (3.5-5.1); Sodium 138 mmol/L (136-145)
--- NOTE | 2021-12-06 09:33 | HMH.DCSUM ---
General - General Admission date:: 12/05/21 Discharge date: 12/06/21 HPI HPI: She is a 36-year-old 3 para 3 lady who complains of lower abdominal pain as well as heavy periods. She has had a bilateral salpingectomy as well as an endometrial ablation. Despite this she continued to have pelvic pain as well as bleeding. After having discussed the risks and benefits she elected to have a laparoscopically assisted vaginal hysterectomy. Hospital Course Hospital Course: Postop course uneventful Discharged home on POD #1 in stable condition She is tolerating regular diet, ambulating and voiding without difficulty Pain control has been sufficient Objective Vital signs: Temp Pulse Resp BP Pulse Ox 98.2 F 74 18 109/69 L 100 12/06/21 08:00 12/06/21 08:00 12/06/21 08:00 12/06/21 08:00 12/06/21 08:00 Narrative: CONSTITUTIONAL: no acute distress HEENT: mucous membranes moist PULMONARY: breathing unlabored without audible wheezes CV: no tachycardia or visible JVD; normal LE peripheral pulses ABD: soft, ND; appropriately tender but no rebound/guarding SKIN: incisions well approximated with minimal drainage EXT: no edema LEs NEURO: alert/oriented, no altered mental status PSYCH: appropriate mood and demeanor Results Labs on day of discharge: Labs from last 24 hours 12/06/21 12/06/21 12/05/21 06:51 06:51 09:00 WBC 10.9 H D RBC 3.91 L Hgb 12.4 Hct 38.2 MCV 97.8 MCH 31.8 H MCHC 32.6 RDW 12.8 Plt Count 245 D MPV 7.6 Neut % (Auto) 64.0 Lymph % (Auto) 26.7 Morgan % (Auto) 6.7 Eos % (Auto) 1.2 Baso % (Auto) 1.3 Neut # (Auto) 7.0 Lymph # (Auto) 2.9 Morgan # (Auto) 0.7 Eos # (Auto) 0.1 Baso # (Auto) 0.1 Sodium 138 Potassium 3.8 Chloride 110 H Carbon Dioxide 26 Anion Gap 5.8 BUN 9 Creatinine 0.60 Estimated Creat Clear 148 Estimated GFR 114 Est GFR ( Amer) 138 Glucose 96 Calcium 8.0 L Urine Color Yellow Urine Appearance Clear Urine pH 5.5 Ur Specific Jachin >= 1.030 Urine Protein 1+ Urine Glucose (UA) Negative Urine Ketones Trace Urine Blood 1+ Urine Nitrate Negative Urine Bilirubin Negative Urine Urobilinogen 0.2 Ur Leukocyte Esterase Trace Urine RBC 3-5 Urine WBC 3-5 Ur Squamous Epith Cells 3-5 Urine Bacteria 1+ DS: Diagnosis - Discharge Diagnosis (1) Menorrhagia Status: Acute (2) Dysmenorrhea Status: Acute (3) Pelvic pain Status: Acute (4) Endometriosis Status: Acute Discharge Plan - Patient Discharge Instructions ACTIVITY: Continue current activity DIET: regular diet Additional Instructions: Nothing in the vagina for 6 weeks. No heavy lifting Patient Instructions: DI for Surgical Site Infection, DI for Postoperative Pain, Hysterectomy -- Laparoscopic Surgery, Preventing the Spread of Coronavirus Discharge Instructions - Follow up Plan Follow up with: Tunde Laguerre MD [Staff Physician] - 12/19/21 10:30 am Disposition: Home, Self-Care Condition at discharge:: Stable Home Medications: Home Medications Medication Instructions Recorded Confirmed Type No Known Home Medications 07/22/21 12/05/21 History Ketorolac Tromethamine [Toradol 10 mg PO Q6H #30 tab 12/06/21 Rx 10mg tablet] Oxycodone HCl [OxyIR 5mg tablet] 5 mg PO Q6HP PRN #20 tab 12/06/21 Rx Prescriptions/Medication Reconciliation: New Ketorolac Tromethamine [Toradol 10mg tablet] 10 mg PO Q6H #30 tab Acetaminophen [Acetaminophen 325mg tab] 650 mg PO Q6H tab Oxycodone HCl [OxyIR 5mg tablet] 5 mg PO Q6HP PRN #20 tab PRN Reason: Moderate To Severe Pain No Action No Known Home Medications - Problem Reconciliation Problems Reviewed?: Yes
--- NOTE | 2021-12-06 10:05 | PC.NURSE ---
IV removed from RAC. Pt. tolerated well 2x2 with coban in place. Pt. instructed to remove coban after 20 minutes and hold pressure to site if bleeding occurs. T&T X2 Removed and bandaid in place. Pt. tolerated well.
--- NOTE | 2021-12-06 10:10 | PC.NURSE ---
Discharge education completed. Questions encouraged and answered. Pt. v/u.
--- NOTE | 2021-12-06 10:30 | PC.NURSE ---
Per pt. request, Pt. left unit ambulatory. Pt. accompanied by staff x1.
--- NOTE | 2021-12-08 14:38 | CARE MANAGER ---
Contacted patient regarding discharge from hospital. Patient states the incisions are starting to itch but she is keeping her hands off of it. She was able to have her medication in hand before she left the hospital and has a follow up appt later this month. Denies any questions or concerns. NEHAL Valero
== END 2021-12-06 10:30 | disposition home or self-care (01) ==
LOC: OB 06:50
PROVIDERS: Admitting Provider Nurse Practitioner Obstetrics & Gynecology; PCP Physician Assistant; Visit Provider Nurse Practitioner Obstetrics & Gynecology
PROC: 0UT9FZZ Resection of Uterus, Via Natural or Artificial Opening With Percutaneous Endoscopic Assistance (ICD-10-PCS; CPT 58550; principal; 2021-12-05 07:30)
DX: N80.0 Endometriosis of uterus (principal); N92.0 Excessive and frequent menstruation with regular cycle; N94.6 Dysmenorrhea, unspecified; R10.2 Pelvic and perineal pain
CPT/HCPCS: 58550; 80048; 81001; 85025; 96374; C9803; G0378; J2405; J2710; U0003; U0005

== ENCOUNTER 2023-02-10 17:50 | Emergency (ER) | payer BC, SELFPAY ==
[2023-02-10 17:54] VITALS: BP 131/78; PULSE 78; RESP 18; TEMP 37.3; O2SAT 98; BMI 22.8
--- NOTE | 2023-02-10 18:21 | EXP.UTC ---
Discharge Plan Disposition Patient Disposition: Home, Self-Care Condition: Good Prescriptions Prescriptions: New prednisone 10 mg tablets,dose pack See Rx Instructions .ROUTE .COMPLEX Qty: 21 0RF Rx Instructions: Take as directed on package instructions Referrals Follow up/Referrals: Leny Zavala PA [Primary Care Provider] - See instructions Activity Restrictions/Add. Instructions Additional Instructions/Restrictions: Oatmeal baths may help with itching and drying of rash Calamine lotion may help to dry the rash Over the counter Benadryl may help with itching Follow up with your Family Doctor if no improvement or any worsening of symptoms Clinical Impressions Clinical Impression: Poison elis dermatitis Instructions Patient Instructions: Poison Elis, Poison Hamilton, Poison Sumac, DI for Poison Elis Allergy, Poisonous Plants: Elis, [place], and [place]: Beware the Oils, Summertime Rashes: Poison Elis, [place], and [place] Discharge ED Provider: Hallie Melissa [facility] HPI General Stated complaint: rash Mode of Arrival: Ambulatory Source of Information: Patient Limitations: No Limitations Time Seen by Provider: 02/10/23 18:21 Description of Symptoms (Recalled from Triage Doc. by RN): pt c/o a rash on her L arm and stomach that appears blisterlike. HEENT Symptoms (Recalled from RN notes): No Resp Symptoms (Recalled from RN notes): No Skin Symptoms (Recalled from RN notes): Yes MS Symptoms (Recalled from RN notes): No Functional Status (Recalled from RN notes): wnl History of Present Illness Provider Complaint: Patient states that she has a blister like rash that oozes at times on her left wrist and on her abdomen thinks it may be poison elis States that she has poison elis in her back yard but didnt think she had got into it but she has tried everything and it has continued to spread Related Data Previous Rx's Medication Instructions Recorded prednisone 10 mg tablets in a dose See Rx Instructions PO .COMPLEX 02/10/23 pack #21 tabs Allergies Allergy/AdvReac Type Severity Reaction Status Date / Time No Known Allergies Allergy Verified 02/10/23 18:00 Worker's Comp Is this a Worker's Comp case?: No [facility] Disclaimer: The information contained in this section may have been updated after the patient was seen, as this information can be updated by other users. Medical History (Updated 02/10/23 @ 18:25 by Hallie Melissa APRN) Anxiety and depression Insomnia Social History Smoking Status: Never smoker alcohol intake: never substance use type: denies use current occupational status: employed Travel in the last 8 weeks: None household members: children housing: house current occupation: [employer] current occupational exposures/hazards: Yes caffeine: Yes ROS Obtained: Yes All systems reviewed & no additional complaints except as documented and Yes Systems reviewed as appropriate & no additional complaints except as documented Constitutional Constitutional: Reports system reviewed and no additional complaints, except as documented and Reports as per HPI ENT Ears, Nose, Mouth, and Throat: Reports system reviewed and no additional complaints, except as documented and Reports as per HPI Cardiovascular Cardiovascular: Reports system reviewed and no additional complaints, except as documented and Reports as per HPI Respiratory Respiratory: Reports system reviewed and no additional complaints, except as documented and Reports as per HPI Gastrointestinal Gastrointestingal: Reports system reviewed and no additional complaints, except as documented and as per HPI Integumentary/Breasts Skin/Breast: Reports system reviewed and no additional complaints, except as documented, Reports as per HPI, Reports pruritus and Reports rash Physical Exam General General appearance: alert and in no apparent distress ENT ENT exam: Present mucous membranes moist Respiratory Respiratory exam: Present
[2023-02-10 18:30] VITALS: BP 131/78; PULSE 78; RESP 18; TEMP 37.3
== END 2023-02-10 18:31 | disposition home or self-care (01) ==
PROVIDERS: Emergency Provider Nurse Practitioner; PCP Physician Assistant
DX: L23.7 Allergic contact dermatitis due to plants, except food (principal); F41.9 Anxiety disorder, unspecified; F32.9 Major depressive disorder, single episode, unspecified; W60.XXXA Contact with nonvenomous plant thorns and spines and sharp leaves, initial encounter
CPT/HCPCS: 99212; 99214; G0463

== ENCOUNTER 2025-07-03 15:10 | Outpatient (CLI) | payer MEDICAID, SELFPAY ==
--- OUTSIDE RECORDS SUMMARY | 2025-07-03 15:12 | XMS_ITS | Clinical Summary ---
[facility] Address [address] [place] [address] Care Team Providers Care Car Manager Name Role Phone Leny Zavala Primary Care Provider [phone] Social History Tobacco Use Types Packs/Day Years Used Date Smoking Tobacco: Never Assessed Abuse Screen Answer Date Recorded Unsafe at Home or Work/School Not on file Feels Threatened by Someone? Not on file 05/2023 Does Anyone Keep You from Co ntacting Others or Doint Things Outside the Home? Not on file 07/05/2023 Physical Sign of Abuse Present Not on file 1 Housing Stability Answer Date Recorded Current Living Arrangements Not on file 05/2023 Potentially Unsafe Housing Conditions Not on ismael e 07/05/2023 Family and Community Support Answer Yasir e Recorded Help with Day-to-Day Activities Not on file 07/05/2023 Lonely or Isolated Not on file 07/05/2023 Employment Answer Date Recorded Do you want help finding or keeping work or a alicia b? Not on file 07/05/2023 Disabilities Answer Date Recorded Concentrating, Remembering, or Making Decisions Difficulty Not on file 07/05/2023 Doing Errands Independently Difficulty Not on fi le 07/05/2023 Education Answer Date Recorded Help with school or training? Not on file Preferred Language Not on file 07/05/2023 Comments Unknown Sex and Gender Information Value Date Recorded Sex Assigned at Not on file Legal Sex Female 1:20 PM EDT Gender Identity Not on file Sexual Orientation Not on file Last Filed Vital Signs Vital Sign Reading Time Taken Comments Blood Pressure 112/82 12/13/2013 2:32 PM EDT Pulse 78 12/13/2013 2:32 PM EDT Temperature 36.6 C (97.8 F) 12/13/2013 2:32 PM EDT Respiratory Rate 18 12/13/2013 2:32 PM EDT Oxygen Saturation - - Inhaled Oxygen Concentration - - Weight 59.9 kg (132 lb 0.2 oz) 12/13/2013 2:32 P M EDT Height 172.7 cm (5' 8 ) 12/13/2013 2:32 PM EDT Body Mass Index 20.07 12/13/2013 2:32 PM EDT Plan of Treatment Health Maintenance Due Date Last Done Comments Annual Gynecologic Pelvic an d Breast Exam 1987 TDAP/TD VACCINES (1 - Tdap) 2006 ANNUAL PHYSICAL 09/16/2020 HEPATITIS C SCREENING 09/16/2020 PT PLAN OF CARE 10/10/2020 INFLUENZA VACCINE 04/27/2025 Pneumococcal Vaccine 0-49 Aged Out No longer eligible based on patient's age to complete this topic Insurance Care Teams Car Manager Relationship Specialty Start Date End Date Leny Zavala PA PCP - General Physician School [employer] 10/09/20
--- NOTE | 2025-07-03 15:15 | US_ITS ---
PROCEDURE: US TRANSVAGINAL CLINICAL INDICATION: LLQP COMPARISON: US US TRANSVAGINAL from 01/06/2021 FINDINGS: Transvaginal sonographic images of the pelvis were obtained. UTERUS: The uterus is surgically absent Vaginal cuff is intact. LEFT OVARY: 3.2cmx3.7 cmx1.8cm with a volume of 10.8ml. There is a follicle measuring 2.5 cm x 1.4 cm x 2.3 cm. RIGHT OVARY: 2.3cmx 2.9 cmx3.2cm with a volume of 10.9ml. There is a follicle measuring 2 cm x 2.3 cm x 2.1 cm. Both ovaries are seen and appear normal. Doppler flow to both ovaries are seen. There is no fluid in the cul-de-sac. IMPRESSION: 1. The uterus is surgically absent. The vaginal vault is intact. 2. Both ovaries are seen and appear normal. They both contain follicles measuring 2.3 cm. 3. No fluid in the cul-de-sac. Dictated by: Tunde Laguerre MD 07/03/2025 16:51 Tunde Laguerre MD in OV 07/03/2025 16:51
== END 2025-07-03 23:59 | disposition home or self-care (01) ==
LOC: RAD 15:10
PROVIDERS: PCP Physician Assistant; Visit Provider Nurse Practitioner Obstetrics & Gynecology
DX: N83.02 Follicular cyst of left ovary (principal); N83.01 Follicular cyst of right ovary; R10.32 Left lower quadrant pain; Z90.710 Acquired absence of both cervix and uterus
CPT/HCPCS: 76830